=== PATIENT | male | born 1990 | race Caucasian/White ===

== ENCOUNTER 2022-03-18 20:39 | Emergency (ER) | payer OTHER ==
[~2022-03-18] VITALS: Ht 160 cm; Wt 77.1 kg
[2022-03-18 21:26] VITALS: BP 144/94
--- NOTE | 2022-03-18 21:27 | NUR ---
Patient ambulated to bed 12.
--- NOTE | 2022-03-18 22:21 | NUR ---
31 Y.O M BIB SELF C/O hives to back AND BUE that started 2 days ago. PT STATED IS DOES NOT KNOW WHAT IS CAUSING THE REACTION. PT TOOK claritin earlier today WITH SOME RELIEF BUT NOT FULLY. NO COMPLAINTS OF PAIN. PT RESTING IN BED. [facility]: biotin
[2022-03-18] MEDS ORDERED: LORazepam 2 MG/ML VIAL ONE (22:43)
[2022-03-18] MEDS ORDERED: predniSONE 20 MG TAB PO ONE (23:00)
[2022-03-18] MEDS ORDERED: PRED20TA5 PO (23:14)
[2022-03-18] MEDS ORDERED: DIPH25SG5 PO (23:14)
[2022-03-18 23:50] VITALS: BP 144/94
--- NOTE | 2022-03-18 23:51 | NUR ---
Patient discharged with v/s stable. Written and verbal after care instructions given and explained. Patient alert, oriented and verbalized understanding of instructions. Ambulatory with steady gait. All questions addressed prior to discharge. ID band removed. Patient advised to follow up with PMD. Rx of BENADRYL AND DELTASONE given. Patient educated on indication of medication including possible reaction and side effects. Opportunity to ask questions provided and answered.
== END 2022-03-18 23:51 | disposition home or self-care (01) ==
LOC: MED 20:39
DX: L23.9 Allergic contact dermatitis, unspecified cause (principal); Z79.899 Other long term (current) drug therapy; Z88.8 Allergy status to other drugs, medicaments and biological substances
CPT/HCPCS: 99283; J7512; Q0163; J2060